=== PATIENT | female | born 2000 | race Caucasian/White ===

== ENCOUNTER 2024-08-27 09:30 | Emergency (ER) | payer MEDICAID ==
[~2024-08-27] VITALS: Ht 162.6 cm; Wt 75.7 kg
[2024-08-27 10:09] LABS: BASOPHILS # (AUTO) 0.02 K/uL (0.00-0.20); BASOPHILS % (AUTO) 0.2 % (0.0-5.0); HEMATOCRIT 31.7 % (36-48); IMMATURE GRANULOCYTE ABSOLUTE 0.12 K/uL (0-1); LYMPHOCYTES # (AUTO) 0.7 K/uL (1.0-4.8); LYMPHOCYTES % (AUTO) 5.5 % (21.0-51.0); MEAN CORPUSCULAR HEMOGLOBIN 29.9 pg (27.0-33.0); MEAN CORPUSCULAR HGB CONC 33.8 g/dL (32.0-36.0); MEAN CORPUSCULAR VOLUME 88.5 fL (79-99); MONOCYTES # (AUTO) 0.5 K/uL (0.1-1.0); NEUTROPHILS # (AUTO) 11.3 K/uL (1.8-7.7); NEUTROPHILS % (AUTO) 89.3 % (40.0-77.0); PLATELET COUNT (AUTO) 214 K/uL (130-400); RED BLOOD CELL COUNT(AUTO) 3.58 MIL/uL (4.00-5.50); WHITE BLOOD COUNT (AUTO) 12.6 K/uL (4.8-10.8)
--- NOTE | 2024-08-27 10:09 | ERN ---
ED Note History of Present Illness Stated Complaint: NAUSEA AND VOMITING Chief Complaint: Nausea,Vomiting,Diarrhea Time Seen by MD: 10:02 Dictation: Patient is a 23-year-old female coming in with today with complaints of nausea vomiting and diarrhea onset two days prior to arrival. No fever no chills no sore throat no loss of taste or smell. She states she is [id number] weeks gravid, . Patient Dr. Rodríguez she states she has not called his office. Allergies: Coded Allergies: No Known Drug Allergies (Unverified Allergy, Unknown, 08/27/24) Home Meds Active Scripts Ondansetron (Ondansetron Odt) 4 Mg Tab.rapdis, 4 MG PO Q6HPRN PRN for nausea, #16 TAB 0 Refills Prov:DILAN CORDOVA LOW VISION THERAPIST 08/27/24 Past Medical History Past Medical History: No Pertinent History Surgical History: None : 1 Para: 0 Aborts: 0 RN Note Reviewed/Agreed w/PFSH: Yes Review of System Dictation CONSTITUTIONAL: Negative except for HPI HEAD/FACE: Negative except for HPI EENT: Negative except for HPI RESPIRATORY: Negative except for HPI GASTROINTESTINAL/ABDOMINAL: Negative except for HPI nausea vomiting with diarrhea GENITOURINARY: Negative except for HPI MUSCULOSKELETAL: Negative except for HPI INTEGUMENTARY: Negative except for HPI NEUROLOGICAL/PSYCH: Negative except for HPI HEMATOLOGIC/LYMPHATIC: Negative except for HPI All Systems Negative, Except as noted above. 13 point review of systems assessed and all negative except for above. Initial Vital Sign VS Vital Signs Date Time Temp Pulse Resp B/P (MAP) Pulse Ox O2 Delivery O2 Flow Rate FiO2 08/27/24 09:32 97.9 131 14 112/75 95 Room Air 08/27/24 11:37 0 21 Physical Exam Dictation Vital Signs reviewed General Appearance: Alert, oriented x 3, no acute distress, well developed, nourished. Head and Face: non-traumatic. Eyes: PERRL, pink conjunctivas, eyelid no trauma, anterior chamber with arcus senilis. Ears: Pinnas intact and no signs of trauma or erythema ear canals clear and no discharge TM no erythema Nose: No discharge, no bleeding. Oropharynx: Mouth normal, tongue pink, pharynx clear,no erythema, tonsils no exudates, no abscesses noted, mucous membrane moist Neck: Supple, non-tender, no thyromegaly, no masses, no JVD, no bruits Breast:Deferred Chest:No tenderness, no crepitus, no paradoxical movement, no retractions Lungs:Clear, well-ventilated, symmetric, no rales, no wheezing, no rhonchi, no stridor, good breath sounds bilaterally Heart: Regular rate, regular rhythm, no murmur, no gallops Vascular: no peripheral edema, Abdomen: Soft, positive bowel sounds, nondistended, no guarding, nontender, no rebound, no masses no hepatomegaly, no splenomegaly, no Pennington's sign, no hernias. Rectal: Deferred Genital: Deferred Neurological: Normal speech, motor function intact, sensory function intact Musculoskeletal: Neck nontender, full range of motion, back nontender, full range of motion, Extremities: nontender, full range of motion Skin: Color pink, dry, no turgor, no rash, no lacerations, no abrasions, no contusions. Lymphatic: Deferred Results (Laboratory/Radiology) Laboratory/Radiology Laboratory Tests Test 08/27/24 10:00 White Blood Count 12.6 K/uL (4.8-10.8) H Red Blood Count 3.58 MIL/uL (4.00-5.50) L Hemoglobin 10.7 g/dL (12.0-16.0) L Hematocrit 31.7 % (36-48) L Mean Corpuscular Volume 88.5 fL (79-99) Mean Corpuscular Hemoglobin 29.9 pg (27.0-33.0) Mean Corpuscular Hemoglobin Concent 33.8 g/dL (32.0-36.0) Red Cell Distribution Width 13.0 % (11.0-15.5) Platelet Count 214 K/uL (130-400) Mean Platelet Volume 8.9 fL (7.5-10.5) Immature Granulocyte % (Auto) 1.0 % (0-1) Neutrophils (%) (Auto) 89.3 % (40.0-77.0) H Lymphocytes (%) (Auto) 5.5 % (21.0-51.0) L Monocytes (%) (Auto) 4.0 % (3.0-13.0) Eosinophils (%) (Auto) 0.0 % (0.0-8.0) Basophils (%) (Auto) 0.2 % (0.0-5.0) Neutrophils # (Auto) 11.3 K/uL (1.8-7.7) H Lymphocytes # (Auto) 0.7 K/uL (1.0-4.8) L Monocytes # (Auto) 0.5 K/uL (0.1-1.0) Eosinophils # (Auto) 0.00 K/uL (0.00-0.70) Basophils # (Auto) 0.02 K/uL (0.00-0.20) Absolute Immature Granulocyte (auto 0.12 K/uL (0-1) Nucleated Red Blood Cells 0.0 % (0.0-0.19) White Cell Morphology Comment See comments Sodium Level 135 mmol/L (136-145) L Potassium Level 3.7 mmol/L (3.5-5.1) Chloride Level 104 mmol/L (101-111) Carbon Dioxide Level 26 mmol/L (21-32) Blood Urea Nitrogen 4 mg/dL (7-18) L Creatinine 0.4 mg/dL (0.5-1.0) L Glomerular Filtration Rate Calc 143 mL/min (>90) Random Glucose 89 mg/dL (70-105) Total Calcium 8.4 mg/dL (8.5-10.1) L Labs Reviewed?: Yes ED Course ED Course Orders Procedure Category Date Status Time 0.9%Nacl 1000ml (Ns PHA 08/27/24 Complete 1000ml) 10:00 Cbc With Differential LAB 08/27/24 Complete 09:44 Basic Metabolic Panel LAB 08/27/24 Complete 09:44 Ondansetron 4mg Inj PHA 08/27/24 Complete (Zofran 4mg Inj) 10:00 *Nursing CPOE 08/27/24 Transmitted Communication: 10:09 Current Medications Medications (Trade) Dose Ordered Sig/Douglas Route PRN Reason Start Time Stop Time Status Last Admin Dose Admin Ondansetron HCl (zoFRAN 4MG INJ) 4 mg ONCE ONCE IVP 08/27/24 10:00 08/27/24 10:01 DC 08/27/24 11:34 Sodium Chloride 1,000 ml @ 0 mls/hr ONCE ONCE IV 08/27/24 10:00 08/27/24 10:01 DC 08/27/24 11:34 Vital Signs Date Time Temp Pulse Resp B/P (MAP) Pulse Ox O2 Delivery O2 Flow Rate FiO2 08/27/24 11:37 98.1 130 16 114/72 98 Room Air* 0 21 08/27/24 09:32 97.9 131 14 112/75 95 Room Air 1150/PATIENT IS SITTING UP IN CHAIR WATCHING HER CELL PHONE. NO NAUSEA VOMITING AT THIS TIME. NO DIARRHEA IN THE EMERGENCY ROOM. PATIENT WILL BE DISCHARGED HOME WITH HYPEREMESIS GRAVIDARUM AND TOLD TO FOLLOW UP WITH DR. RODRÍGUEZ AT HIS OFFICE TOMORROW FOR FURTHER EVALUATION AND TREATMENT. ALSO I INFORMED HER TO FIND OUT WHERE SHE IS GOING TO BE DELIVERING THE BABY AND WHERE DR. RODRÍGUEZ HAS PRIVILEGES. Medical Decision Making MDM MEDICAL DISCHARGE MAKING BASED ON BASIC LABS FOR HYPEREMESIS GRAVIDARUM PATIENT GIVEN IV FLUIDS AND ZOFRAN. LABS SHOWED NO INFECTION HOWEVER THERE IS MILD DEHYDRATION DISCHARGED HOME WITH ZOFRAN TOLD SEE DR. RODRÍGUEZ FURTHER EVALUATION AND TREAT SOON POSSIBLE DX & DISP Disposition: Discharge Departure Impression: Primary Impression: Hyperemesis gravidarum Additional Impression: Dehydration Condition: Stable Scripts Ondansetron (Ondansetron Odt) 4 Mg Tab.rapdis 4 MG PO Q6HPRN PRN for nausea, #16 TAB 0 Refills Prov: DILAN CORDOVA LOW VISION THERAPIST 08/27/24 Additional Instructions: FOLLOW-UP WITH PRIMARY CARE PROVIDER IN 1 TO 2 DAYS. TAKE MEDICATIONS DIRECTED HERE IN THE EMERGENCY ROOM. OKAY TO CONTINUE HOME MEDICATIONS UNLESS OTHERWISE DISCUSSED DURING YOUR VISIT IN THE EMERGENCY ROOM TODAY. RETURN TO YOUR NEAREST EMERGENCY ROOM IF SYMPTOMS WORSEN OR IF THERE IS NO IMPROVEMENT. CALL 911 IF YOU NEED IMMEDIATE ASSISTANCE. TAKE TYLENOL OR MOTRIN [id number] NEEDED AND IF NO CONTRAINDICATIONS ARE PRESENT. INCREASE ORAL HYDRATION. A WOUND CULTURE OR URINE CULTURE WAS ORDERED HERE IN THE EMERGENCY ROOM DEPARTMENT PLEASE FOLLOW-UP WITH PRIMARY CARE PROVIDER AND ADVISE THEM TO GET REPEAT PORTS FROM OUR FACILITY. IF YOU HAD ANY ASAEL WRAP/SPLINTS THAT WERE APPLIED HERE, PLEASE DO NOT REMOVE THEM UNTIL YOU SEE YOUR PRIMARY CARE OR SPECIALTY. TAKE ZOFRAN DIRECTED FOR NAUSEA VOMITING. SEE YOUR [employer] PR[employer] OPERATOR DOCTOR THIS AFTERNOON OR TOMORROW FOR FOLLOW UP AND MANAGEMENT. Referrals: SELF,REFERRAL (PCP) Time of Disposition: 11:52 I have reviewed the case, and I agree with, Diagnosis and Plan I performed a substantive portion of the visit. I have reviewed and personally made and approve the management plan that is documented in the notes by myself with ARRON/resident. I acknowledged full responsibility for the patient's management plan. DILAN CORDOVA NP Aug 27, 2024 10:09 PARK KUMAR DO Aug 27, 2024 13:46
[2024-08-27 10:18] LABS: CREATININE 0.4 mg/dL (0.5-1.0); POTASSIUM 3.7 mmol/L (3.5-5.1)
[2024-08-27] MEDS: ondanSETRON 4MG INJ IVP ONE (11:34)
[2024-08-27] MEDS: 0.9%NACL 1000ML 1,000 ML IV ONE (11:34)
[2024-08-27 11:37] VITALS: BP 114/72; PULSE 130; RESP 16; TEMP 98.1; O2SAT 98
[2024-08-27] MEDS ORDERED: ONDA-243 PO (11:52)
--- NOTE | 2024-08-27 11:54 | NUR ---
unable to detect heart tones at this time pt to follow up with ob at 1330 08/27/24
--- NOTE | 2024-08-27 11:55 | NUR ---
dc delay due to project manager entertainment and media
== END 2024-08-27 12:03 | disposition home or self-care (01) ==
LOC: EDH 09:30
DX: O21.0 Mild hyperemesis gravidarum (principal); E86.0 Dehydration; Z79.899 Other long term (current) drug therapy; Z3A.24 24 weeks gestation of pregnancy
CPT/HCPCS: 99283; 96374; 80048; 85025; 36415; J7030; J2405